=== PATIENT | male | born 1975 | race Caucasian/White ===

== ENCOUNTER 2018-04-08 11:46 | Emergency (ER) | payer OTHER ==
[~2018-04-08] VITALS: Ht 172.7 cm; Wt 99.8 kg
[~2018-04-08 11:46] MED LIST: ACYCLOVIR 400400 MG PO; BLOOD PRESSURE; CIPROFLOXACIN500 M1 PO; HYDROCHLOROTH12.5 MG; HYDROCODONE-AP1 EAC6 PO; IBUPROFEN 200200 M1 PO; IBUPROFEN 800800 M1 PO; KEFLEX500 MG PO; NORCO 5-325 TA1 EACH PO; PERCOCET 5-3251 EACH PO; PREDNISONE 10 M10 M1 PO; SEPTRA DS TABL1 EACH PO; TESSALON PERLE100 MG PO; TYLENOL325 MG PO; VENTOLIN HFA 1818 GM INH
[2018-04-08] MEDS ORDERED: PRINIVIL20 MG PO (12:09)
[2018-04-08] MEDS ORDERED: ZOLOFT50 MG PO (12:09)
[2018-04-08] MEDS ORDERED: LOPRESSOR100 M1 PO (12:09)
[2018-04-08 12:56] LABS: HEMATOCRIT 47.2 % (42.0-52.0); MCH 29.4 pg (26.0-34.0); MCHC 33.9 g/dL (28.0-37.0); MCV 86.6 fL (80.0-100.0); MPV 7.6 fl. (7.2-11.1); NUCLEATED RBCS 0 /100WBC; PLATELET COUNT* 244 thou/uL (150-400); RBC 5.45 mil/uL (4.50-6.00); RDW-CV 13.8 % (10.5-14.5); WBC 14.2 thou/uL (4.0-11.0)
[2018-04-08 13:02] LABS: ANION GAP 8 mmol/L (7-16); BUN 21 mg/dL (7-18); CHLORIDE 100 mmol/L (98-107); CO2 29 mmol/L (21-32); CREATININE 1.2 mg/dL (0.6-1.3); GLUCOSE 113 mg/dL (70-99); POTASSIUM 4.1 mmol/L (3.5-5.1); SODIUM 137 mmol/L (136-145)
[2018-04-08 13:12] LABS: ALBUMIN 3.9 g/dL (3.4-5.0); ALKALINE PHOSPHATASE 83 U/L (46-116); SGOT 21 U/L (15-37); SGPT 28 U/L (30-65); TOTAL BILIRUBIN 0.4 mg/dL (<0.1-1.0); TOTAL PROTEIN 7.4 g/dL (6.4-8.2); TROPONIN-I LEVEL <0.06 ng/mL (<0.06)
[2018-04-08 13:21] LABS: ABSOLUTE EOSINOPHILS 0.1 thou/uL (0.0-0.7); ABSOLUTE MONOCYTES 0.6 thou/uL (0.0-1.2); ABSOLUTE NEUTROPHILS 12.5 thou/uL (1.6-8.1)
[2018-04-08 13:22] LABS: PLATELET ESTIMATE ADEQUATE
[2018-04-08 14:10] VITALS: BP 118/75
--- NOTE | 2018-04-08 16:32 | EKG ---
[place] [address] ELECTROCARDIOGRAM REPORT Name: CHANEL CAO ELVIA Room: [facility]#: [id number] Admission: 04/08/18 Attend Phys: Discharge: 04/08/18 Date of : 75 Report #: [id number] THIS REPORT FOR: //name// 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: Shannan OQUENDO : 1975 Requested By: Natali Gilbert Order Number: [id number] MD: Grabiel Villalobos Measurements Intervals [place] Rate: 53 P: -2 ND: 126 QRS: 26 QRSD: 110 T: 6 QT: 444 QTc: 417 Interpretive Statements Sinus rhythm ST elev, probable normal early repol pattern Compared to ECG 01/09/2009 20:56:33 ST (T wave) deviation now present Electronically Signed On 04-08-2018 16:31:48 CDT by Grabiel Villalobos [email or web address] <ELECTRONICALLY SIGNED> By: Grabiel Villalobos MD, [facility] 04/08/18 1631 1251 1251 Grabiel Villalobos MD, [facility] /EPI
== END 2018-04-08 14:11 | disposition home or self-care (01) ==
LOC: M.ERS 11:46
PROVIDERS: Nurse Practitioner Family
DX: D72.829 Elevated white blood cell count, unspecified (principal); R42 Dizziness and giddiness; R05 Cough; R06.02 Shortness of breath; I10 Essential (primary) hypertension; F32.9 Major depressive disorder, single episode, unspecified

== ENCOUNTER 2019-06-23 20:40 | Emergency (ER) | payer OTHER ==
[~2019-06-23] VITALS: Ht 172.7 cm; Wt 99.8 kg
[~2019-06-23 20:40] MED LIST changes: +LOPRESSOR100 M1 PO; +PRINIVIL20 MG PO; +ZOLOFT50 MG PO
[2019-06-23] MEDS ORDERED: KEFLEX500 M1 PO (21:11)
[2019-06-23 22:08] VITALS: BP 155/71
== END 2019-06-23 22:09 | disposition home or self-care (01) ==
LOC: M.ERS 20:40
DX: L72.3 Sebaceous cyst (principal); I10 Essential (primary) hypertension; F32.9 Major depressive disorder, single episode, unspecified; F17.220 Nicotine dependence, chewing tobacco, uncomplicated

== ENCOUNTER 2019-11-05 14:45 | Emergency (ER) | payer OTHER ==
[~2019-11-05] VITALS: Ht 170.2 cm; Wt 104.3 kg
[~2019-11-05 14:45] MED LIST changes: +KEFLEX500 M1 PO
[2019-11-05] MEDS ORDERED: LEXAPRO 10 MG T10 M1 PO (15:00)
[2019-11-05 15:32] LABS: INFLUENZA A ANTIGEN Negative (Negative); INFLUENZA B ANTIGEN Negative (Negative)
[2019-11-05] MEDS ORDERED: PROMETH-CODEIN 65 ML PO (16:25)
[2019-11-05] MEDS ORDERED: AUGMENTIN 875-1 EACH PO (16:25)
[2019-11-05] MEDS ORDERED: VENTOLIN HFA 1818 GM INH (16:25)
[2019-11-05] MEDS ORDERED: MUCINEX600 MG PO (16:25)
[2019-11-05 16:32] VITALS: BP 129/76
== END 2019-11-05 16:32 | disposition home or self-care (01) ==
LOC: M.ERS 14:45
PROVIDERS: Nurse Practitioner Family
DX: J20.9 Acute bronchitis, unspecified (principal); J32.9 Chronic sinusitis, unspecified; I10 Essential (primary) hypertension; F17.220 Nicotine dependence, chewing tobacco, uncomplicated

== ENCOUNTER 2019-11-27 19:46 | Emergency (ER) | payer OTHER ==
[~2019-11-27] VITALS: Ht 172.7 cm; Wt 100.7 kg
[~2019-11-27 19:46] MED LIST changes: +AUGMENTIN 875-1 EACH PO; +LEXAPRO 10 MG T10 M1 PO; +MUCINEX600 MG PO; +PROMETH-CODEIN 65 ML PO
[2019-11-27] MEDS ORDERED: IBUPROFEN 800800 MG PO (20:41)
[2019-11-27] MEDS ORDERED: LORCET 5-325 M1 EACH PO (20:41)
[2019-11-27 20:52] VITALS: BP 149/82
== END 2019-11-27 20:56 | disposition home or self-care (01) ==
LOC: M.ERS 19:46
DX: S63.592A Other specified sprain of left wrist, initial encounter (principal); I10 Essential (primary) hypertension; F17.220 Nicotine dependence, chewing tobacco, uncomplicated; W18.39XA Other fall on same level, initial encounter; Y93.K1 Activity, walking an animal; Y92.89 Other specified places as the place of occurrence of the external cause; Y99.8 Other external cause status

== ENCOUNTER 2020-09-12 18:23 | Emergency (ER) | payer OTHER ==
[~2020-09-12 18:23] MED LIST changes: +IBUPROFEN 800800 MG PO; +LORCET 5-325 M1 EACH PO
== END 2020-09-12 19:47 | disposition left against medical advice (07) ==
LOC: M.ERS 18:23
DX: Z53.21 Procedure and treatment not carried out due to patient leaving prior to being seen by health care provider (principal)

== ENCOUNTER 2020-10-08 17:39 | Emergency (ER) | payer OTHER ==
[~2020-10-08] VITALS: Ht 172.7 cm; Wt 104.3 kg
[2020-10-08] MEDS ORDERED: PROZAC40 MG PO (17:48)
[2020-10-08] MEDS ORDERED: NORCO 5-325 TA1 EAC2 PO (18:44)
[2020-10-08] MEDS ORDERED: INDOMETHACIN 5050 M1 PO (18:44)
[2020-10-08] MEDS ORDERED: PREDNISONE 10 M10 MG PO (18:44)
[2020-10-08 18:48] VITALS: BP 132/72
== END 2020-10-08 18:49 | disposition home or self-care (01) ==
LOC: M.ERS 17:39
DX: M10.072 Idiopathic gout, left ankle and foot (principal); I10 Essential (primary) hypertension; F17.220 Nicotine dependence, chewing tobacco, uncomplicated

== ENCOUNTER 2021-11-19 20:09 | Emergency (ER) | payer OTHER ==
[~2021-11-19] VITALS: Ht 172.7 cm; Wt 104.3 kg
[~2021-11-19 20:09] MED LIST changes: +INDOMETHACIN 5050 M1 PO; +NORCO 5-325 TA1 EAC2 PO; +PREDNISONE 10 M10 MG PO; +PROZAC40 MG PO
[2021-11-19] MEDS ORDERED: HYDROCODON-ACE1 EAC7 PO (23:37)
[2021-11-19] MEDS ORDERED: AMOXICILLIN 50500 MG PO (23:40)
[2021-11-19] MEDS ORDERED: MEDROLDOSEPACK PO (23:40)
[2021-11-20 00:10] VITALS: BP 161/79
== END 2021-11-20 00:10 | disposition home or self-care (01) ==
LOC: M.ERS 20:09
DX: T22.112A Burn of first degree of left forearm, initial encounter (principal); I10 Essential (primary) hypertension; F32.9 Major depressive disorder, single episode, unspecified; F17.220 Nicotine dependence, chewing tobacco, uncomplicated; Z98.890 Other specified postprocedural states; Z79.899 Other long term (current) drug therapy; X08.8XXA Exposure to other specified smoke, fire and flames, initial encounter; Y93.89 Activity, other specified; Y92.89 Other specified places as the place of occurrence of the external cause; Y99.8 Other external cause status

== ENCOUNTER 2021-12-22 19:01 | Emergency (ER) | payer OTHER ==
[~2021-12-22] VITALS: Ht 170.2 cm; Wt 104.3 kg
[~2021-12-22 19:01] MED LIST changes: +AMOXICILLIN 50500 MG PO; +HYDROCODON-ACE1 EAC7 PO; +MEDROLDOSEPACK PO
[2021-12-22] MEDS ORDERED: TRAZODONE HCL100 MG PO (19:15)
[2021-12-22] MEDS ORDERED: ALLOPURINOL 10100 M3 PO (19:16)
[2021-12-22] MEDS ORDERED: WELLBUTRIN 100100 MG PO (19:16)
[2021-12-22 19:53] LABS: URINE BILIRUBIN NEGATIVE (Negative); URINE BLOOD NEGATIVE (Negative); URINE CLARITY CLEAR; URINE COLOR YELLOW; URINE GLUCOSE-RANDOM NEGATIVE (Negative); URINE KETONES TRACE (Negative); URINE LEUKOCYTES-REFLEX NEGATIVE (Negative); URINE NITRITE-REFLEX NEGATIVE (Negative); URINE PROTEIN NEGATIVE (Negative)
[2021-12-22 20:05] LABS: ABSOLUTE BASOPHILS 0.1 thou/uL (0.0-0.2); ABSOLUTE EOSINOPHILS 0.2 thou/uL (0.0-0.7); ABSOLUTE LYMPHOCYTES 1.4 thou/uL (0.8-5.3); ABSOLUTE MONOCYTES 0.9 thou/uL (0.0-1.2); ABSOLUTE NEUTROPHILS 3.5 thou/uL (1.6-8.1); BASOPHILS 1.1 %; EOSINOPHILS 3.8 %; HEMATOCRIT 46.1 % (42.0-52.0); HEMOGLOBIN 15.4 gm/dL (14.0-18.0); LYMPHOCYTES 22.7 %; MCH 29.4 pg (26.0-34.0); MCHC 33.5 g/dL (28.0-37.0); MCV 87.8 fL (80.0-100.0); MONOCYTES 15.1 %; MPV 8.2 fl. (7.2-11.1); NUCLEATED RBCS 0 /100WBC; PLATELET COUNT* 258 thou/uL (150-400); POLYS 57.3 %; RBC 5.25 mil/uL (4.50-6.00); RDW-CV 14.9 % (10.5-14.5)
[2021-12-22 20:19] LABS: CALCIUM 8.2 mg/dL (8.5-10.1); CREATININE 1.4 mg/dL (0.6-1.3); POTASSIUM 4.1 mmol/L (3.5-5.1)
[2021-12-22 20:25] LABS: ALBUMIN 3.6 g/dL (3.4-5.0); TOTAL BILIRUBIN 0.4 mg/dL (<0.1-1.0); TOTAL PROTEIN 7.1 g/dL (6.4-8.2)
[2021-12-22] MEDS ORDERED: HYDROCODON-ACE1 EAC7 PO (22:57)
[2021-12-22] MEDS ORDERED: DICYCLOMINE HCL20 MG PO (22:57)
[2021-12-22] MEDS ORDERED: ZOFRAN ODT4 MG PO (22:57)
[2021-12-22 23:13] VITALS: BP 120/78
== END 2021-12-22 23:15 | disposition home or self-care (01) ==
LOC: M.ERS 19:01
PROVIDERS: Personal Emergency Response Attendant
DX: K52.9 Noninfective gastroenteritis and colitis, unspecified (principal); R10.32 Left lower quadrant pain; I10 Essential (primary) hypertension; F32.9 Major depressive disorder, single episode, unspecified; M10.9 Gout, unspecified; F17.200 Nicotine dependence, unspecified, uncomplicated; Z98.890 Other specified postprocedural states; Z79.899 Other long term (current) drug therapy

== ENCOUNTER 2021-12-25 20:07 | Emergency (ER) | payer OTHER ==
[~2021-12-25] VITALS: Ht 170.2 cm; Wt 104.3 kg
[~2021-12-25 20:07] MED LIST changes: +ALLOPURINOL 10100 M3 PO; +DICYCLOMINE HCL20 MG PO; +TRAZODONE HCL100 MG PO; +WELLBUTRIN 100100 MG PO; +ZOFRAN ODT4 MG PO
[2021-12-25 20:14] VITALS: BP 184/84
[2021-12-25] MEDS ORDERED: ACYCLOVIR 800800 MG PO (20:22)
== END 2021-12-25 20:25 | disposition home or self-care (01) ==
LOC: M.ERS 20:07
DX: B02.9 Zoster without complications (principal); I10 Essential (primary) hypertension; F32.9 Major depressive disorder, single episode, unspecified; Z98.890 Other specified postprocedural states; Z79.899 Other long term (current) drug therapy